=== PATIENT | male | born 1990 | race Hispanic/Latino ===

== ENCOUNTER 2018-12-17 11:05 | Emergency (ER) | payer MEDICARE ==
[2018-12-17 11:11] VITALS: BP 120/56
[2018-12-17] MEDS ORDERED: IBUPROFEN PO ONE (11:50)
[2018-12-17] MEDS ORDERED: KEFLEX PO ONE (11:51)
--- NOTE | 2018-12-17 11:51 | Emergency Department Report ---
ED Laceration HPI - HPI Chief Complaint: Wound/Laceration Stated Complaint: RT HAND CUT/PAIN Time Seen by Provider: 12/17/18 11:37 Occurred When: Today Location: Upper Extremity (right index) Tetanus Status: Up to Date Other History: This is a 28-year-old male who presents to ED complaining of laceration to right ring finger. Patient states he was working on it her ve hicle when he accidentally scraped his hand on something and sustained a laceration. Patient states that his tetanus is up-to-date. Patient states bleeding is resolved after applying pressure. He denies any other complaints ED Review of Systems ROS: Stated complaint: RT HAND CUT/PAIN Other details as noted in HPI Comment: All other systems reviewed and negative ED Past Medical Hx - Past Medical History Previous Medical History?: No - Surgical History Additional Surgical History: AMPUTEE - Social History Smoking Status: Never Smoker Substance Use Type: Marijuana - Medications Home Medications: Home Medications Medication Instructions Recorded Confirmed Last Taken Type Ibuprofen [Motrin] 800 mg PO Q8HR #30 tablet 12/17/18 Unknown Rx cephALEXin [Keflex] 500 mg PO Q12HR #10 cap 12/17/18 Unknown Rx Laceration Physical Exam - Exam General: Vital signs noted. No distress. Alert and acting appropriately. Wound Length (cm): 1 Laceration Location: Upper Extremity Laceration Exam: Yes Normal Distal CMS, No Foreign Body, No Exposed Tendon, Vessel, or Nerve, No Tendon Injury ED Course Vital Signs 12/17/18 11:09 Temperature 98.3 F Pulse Rate 58 L Respiratory 18 Rate Blood Pressure 120/56 O2 Sat by Pulse 98 Oximetry ED Medical Decision Making - Medical Decision Making And in 8-year-old male presents with laceration to the right fourth digit The #cm laceration wound was prepped and draped in sterile fashion. Anesthesia was achieved with 4mL of 1% lidocaine. The wound was irrigated with 200cc NS and explored. There were no foreign bodies The wound was reapproximated in 1 layer with # sutures suing with three 4-0 monofilament sutures in the dermis with interrupted sutures percutaneously. There was excellent reapproximation of the wound edges. The patient tolerated the procedure without complication Critical care attestation.: If time is entered above; I have spent that time in minutes in the direct care of this critically ill patient, excluding procedure time. ED Disposition Clinical Impression: Laceration of finger of right hand Disposition: [id number] TO HOME OR SELFCARE Is pt being admited?: No Does the pt Need Aspirin: No Condition: Stable Instructions: Laceration (ED), Suture Care (ED), Suture Removal (ED) Additional Instructions: Make sure to follow up with the primary care physician as discussed. Take all your medications as you've been prescribed. If you have any worsening symptoms or develop new symptoms please return to ED immediately. Prescriptions: cephALEXin [Keflex] 500 mg PO Q12HR #10 cap Ibuprofen [Motrin] 800 mg PO Q8HR #30 tablet Referrals: [facility] [Outside] - 3-5 Days [facility] [Outside] - 3-5 Days Forms: Work/School Release Form(ED) Time of Disposition: 12:54
== END 2018-12-17 13:19 | disposition home or self-care (01) ==
LOC: ED 11:05
DX: S61.214A Laceration without foreign body of right ring finger without damage to nail, initial encounter (principal); F12.10 Cannabis abuse, uncomplicated; Z79.899 Other long term (current) drug therapy; W26.8XXA Contact with other sharp object(s), not elsewhere classified, initial encounter; Y93.89 Activity, other specified; Y92.89 Other specified places as the place of occurrence of the external cause; Y99.8 Other external cause status